=== PATIENT | male | born 1970 | race African-American/Black ===

== ENCOUNTER 2024-04-22 13:22 | Emergency (ER) | payer OTHER ==
[2024-04-22 13:52] VITALS: BP 117/79; PULSE 103; RESP 18; TEMP 101.3; BMI 27.3
[2024-04-22] MEDS: IBUPROFEN 600 MG TABLET (FP) PO ONE (15:14)
[2024-04-22] MEDS: ACETAMINOPHEN 325 MG TABLET (FP) PO ONE (15:14)
== END 2024-04-22 16:41 | disposition home or self-care (01) ==
LOC: JERFT 13:22
DX: U07.1 COVID-19 (principal); R51.9 Headache, unspecified; R05.9 Cough, unspecified; R50.9 Fever, unspecified; R52 Pain, unspecified; R09.81 Nasal congestion
CPT/HCPCS: 0241U-QW; 99283-25